=== PATIENT | male | born 1980 | race Caucasian/White ===

== ENCOUNTER 2018-12-19 20:12 | Emergency (ER) | payer OTHER ==
[2018-12-19] MEDS ORDERED: Fentanyl 100 MCG/2 ML VIAL ONE (20:39)
[2018-12-19] MEDS ORDERED: Piperacillin/Tazobactam 3.375 GM VIAL ONE (20:39)
[2018-12-19] MEDS ORDERED: Sodium Chloride 0.9% 100 ML ONE (20:39)
[2018-12-19] MEDS ORDERED: Sodium Chloride 0.9% 1,000 ML ONE (20:39)
[2018-12-19 21:16] LABS: Band 7 % (5-11); Hemoglobin 14.2 g/dL (14.0-18.0); Lymphocytes 17 % (21-51); MDiff Complete? YES; Mean Corpuscular HGB CONC 33.5 g/dL (32.0-36.0); Mean Corpuscular Hemoglobin 31.8 pg (27.0-31.0); Mean Corpuscular Volume 95.1 fL (78.0-98.0); Mean Platelet Volume 7.2 fL (7.4-10.4); Monocytes 6 % (0-10); Neutrophil 70 % (42-75); Platelet Count 376 thou/uL (130-400); Platelet Morphology Comment Appears Adequate; RBC Distribution Width 11.2 % (11.5-14.5); Red Blood Cell (RBC) Count 4.45 mill/uL (4.70-6.10); White Blood Cell (WBC) Count 22.1 thou/uL (4.8-10.8)
--- NOTE | 2018-12-19 21:16 | RAD ---
PORTABLE CHEST: 12/19/18 HISTORY: Fever, infection. Herat size and mediastinum are within normal limits. The lungs are clear of any infiltrative process. No significant bony findings. IMPRESSION: No active intrathoracic disease. POS: [facility]
[2018-12-19 21:19] LABS: ALT (SGPT) 23 U/L (8-55); AST (SGOT) 16 U/L (5-34); Albumin 3.8 g/dL (3.5-5.0); Alkaline Phosphatase 90 U/L (40-150); Anion Gap 15 mmol/L (10-20); BUN (Urea Nitrogen) 11 mg/dL (8.9-20.6); Bilirubin, Total 0.9 mg/dL (0.2-1.2); Calc. Creatinine Clearance 0 mL/min (70-130); Calcium 9.2 mg/dL (7.8-10.44); Carbon Dioxide 22 mmol/L (22-29); Chloride 98 mmol/L (98-107); Estimated GFR-MDRD Greater than 90; Globulin 3.5 g/dL (2.4-3.5); Glucose 381 mg/dL (70-105); Protein, Total 7.3 g/dL (6.0-8.3); Sodium 131 mmol/L (136-145)
[2018-12-19] MEDS ORDERED: Insulin Regular 300 UNITS/3 ML VIAL ONE (21:28)
--- NOTE | 2018-12-19 22:01 | RAD ---
RIGHT FEMUR TWO VIEWS: 12/19/18 HISTORY: Right thigh infection. I do not appreciate any soft tissue air or foreign body. The hip region is somewhat difficult to visu frederick due to body habitus but shows some arthritic change. No fractures or other findings. IMPRESSION: No acute findings. POS: [facility]
== END 2018-12-19 21:53 | disposition short-term general hospital (02) ==
LOC: MADERS 20:12
DX: L02.415 Cutaneous abscess of right lower limb (principal); L03.115 Cellulitis of right lower limb; F15.10 Other stimulant abuse, uncomplicated; E11.65 Type 2 diabetes mellitus with hyperglycemia; Z79.84 Long term (current) use of oral hypoglycemic drugs
CPT/HCPCS: 36415; 71045; 80053; 83605; 84484; 85025; 87040; 93005; 96365; 96375; 99406; J1815; J2543; J3010; J7050

== ENCOUNTER 2019-01-27 10:23 | Emergency (ER) | payer OTHER ==
[2019-01-27] MEDS ORDERED: Oseltamivir 75 MG CAP ONE (11:19)
[2019-01-27] MEDS ORDERED: Benzonatate 100 MG CAP ONE (11:19)
[2019-01-27] MEDS ORDERED: Dexamethasone 4 MG TAB ONE (11:19)
--- NOTE | 2019-01-27 13:34 | RAD ---
TWO VIEWS CHEST: DATE: 01/27/2019. PROVIDED CLINICAL HISTORY: Cough and fever. FINDINGS: Cardiac and mediastinal silhouette is within normal limits. Lungs appear clear. No pleural fluid or pneumothorax apparent. IMPRESSION: No evidence for an acute cardiopulmonary process. POS: [facility]
== END 2019-01-27 11:44 | disposition home or self-care (01) ==
LOC: MADERS 10:23
DX: J10.1 Influenza due to other identified influenza virus with other respiratory manifestations (principal); E11.9 Type 2 diabetes mellitus without complications; F17.210 Nicotine dependence, cigarettes, uncomplicated; Z79.84 Long term (current) use of oral hypoglycemic drugs
CPT/HCPCS: 71046; 87804; J7620; J8540